=== PATIENT | female | born 1945 | race Caucasian/White ===

== ENCOUNTER → 2019-09-20 | Outpatient (CLI) | payer MEDICARE ==
--- NOTE | 2019-09-21 09:57 | USB ---
Reason for exam: clinical finding. History: Implants in both breasts. Physical Findings: Nurse did not find any significant physical abnormalities on exam. US Breast BILAT Right complete breast ultrasound includes all four quadrants, the retroareolar region and axilla. Finding demonstrates no cystic or solid lesion seen. Left complete breast ultrasound includes all four quadrants, the retroareolar region and axilla. Finding demonstrates no cystic or solid lesion seen. Underlying implants demonstrated with calcified capsules. These results were verbally communicated with the patient and result sheet given to the patient on 09/20/19. ASSESSMENT: Incomplete: need additional imaging evaluation, BI-RAD 0 RECOMMENDATION: Breast MRI of both breasts. If concern for implant rupture. Routine screening mammogram of both breasts. Patient is due not for annual exam.
== END | disposition home or self-care (01) ==
LOC: RADUSWWP 13:48
PROVIDERS: ATTEND Family Medicine
DX: T85.49XA Other mechanical complication of breast prosthesis and implant, initial encounter (principal)

== ENCOUNTER → 2019-09-29 | Outpatient (CLI) | payer MEDICARE ==
[2019-09-29 09:56] VITALS: BP 121/74; PULSE 81; RESP 16; TEMP 97.9
--- NOTE | 2019-09-29 10:38 | P.GSHP ---
History of Present Illness H&P Date: 09/29/19 Chief Complaint: ? implant rupture Jihan is a 74 year old white female seen in consultation for DR. Reid who had her last mammogram in 2018. She had bilateral breast implants placed in 1989. She does not know what type of implants they are. On her last mammogram in 2018 there was question of irregularity of the superior posterior lateral aspect of the left implant, which suggested extracapsular implant rupture which had increased since 2014. No suspicious masses or architectural distortion was otherwise noted. This was benign BIRADS Category 2 with left breast findings suggestive for extracapsular implant rupture. The patient had an ultrasound of both breast performed [place] [id number]. This revealed calcified capsules on the implants and an MRI of both breast was recommended. The patient herself has not noted any lumps masses or nodules in her breast. She has not noted any change in the size of the implants. She does not have any concerns of any pain related to the implants. She has no recent history of any trauma or infection of the breast. Caffeine: 1 coffee/day Nicotine: Negative Theophylline: Patient known Hormones: Negative Family History: sister: throat cancer smoker Hormonal History: menarche: 15 , first born at 27, breast fed: yes menopause: 49 BCP: 5 years hormones: none Surgical history: 1. Tubal ligation 2. Bilateral breast implants 3. C-sections 4. Left femur lroi 5. Eyelid surgery 6. Bilateral cataract surgery 7. Right knee arthroscopic surgery Medical history: none Social History: smoke: none/ stopped 37 years age 1PPD/27 years alcohol: glass of wine daily drugs:none - Constitutional Constitutional: Denies chills, Denies fever - EENT Eyes: denies blurred vision, denies pain Ears: bilateral: tinnitus, deny: decreased hearing Ears, nose, mouth and throat: Denies headache, Denies sore throat - Breasts Breasts: bilateral: as per HPI - Cardiovascular Cardiovascular: Denies chest pain, Denies shortness of breath - Respiratory Comment: bronchitis/ former smoker Respiratory: Denies cough, Denies 7 - Gastrointestinal Gastrointestinal: Denies abdominal pain, Denies diarrhea, Denies nausea, Denies vomiting - Genitourinary (Female) Genitourinary: Denies dysuria, Denies hematuria - Menstruation Menstruation: Reports postmenopausal - Musculoskeletal Comment: low back pain occasional Musculoskeletal: Denies myalgias - Integumentary Integumentary: Denies pruritus, Denies rash - Neurological Neurological: Denies numbness, Denies weakness - Psychiatric Psychiatric: Denies anxiety, Denies depression - Endocrine Endocrine: Denies fatigue, Denies weight change - Hematologic/Lymphatic Comment: none Past Medical History Past Medical History: COPD, GERD/Reflux Additional Past Medical History / Comment(s): HEART MURMUR; CHRONIC BRONCHITIS; LOWER BACK PAIN; History of Any Multi-Drug Resistant Organisms: None Reported Past Surgical History: Breast Surgery, Section, Orthopedic Surgery, Tubal Ligation Additional Past Surgical History / Comment(s): LEFT FEMUR FX WITH HARDWARE 1979; right knee surgery; section x2 10/1972 & 06/1985; tubal ligation 1981; breast implants approx~1989; Past Anesthesia/Blood Transfusion Reactions: No Reported Reaction Past Psychological History: No Psychological Hx Reported Smoking Status: Former smoker Past Alcohol Use History: Occasional Additional Past Alcohol Use History / Comment(s): SMOKED FOR APPROX 27 YEARS, 1PPD. QUIT SMOKING 27 YRS AGO. Past Drug Use History: None Reported - Past Family History Sister(s) Family Medical History: Cancer Additional Family Medical History / Comment(s): THROAT CA. Mother Additional Family Medical History / Comment(s): Arteriosclerosis Medications and Allergies Home Medications Medication Instructions Recorded Confirmed Type Multivitamins, Thera [Multivitamin] 1 tab PO QAM 07/31/15 09/29/19 History Naproxen Sodium [Aleve] 440 mg PO BID PRN 07/31/15 09/29/19 History Rosuvastatin Calcium [Crestor] 10 mg PO HS 07/31/15 09/29/19 History Tiotropium [place] [Spiriva] 1 puff IH QAM 07/31/15 09/29/19 History Vitamin B Complex 1 each PO QAM 07/31/15 09/29/19 History diphenhydrAMINE [Benadryl] 25 mg PO HS 07/31/15 09/29/19 History Acetaminophen-Codeine 300-30mg 1 tab PO Q6H PRN #40 tablet 08/01/15 09/29/19 Rx [Tylenol #3] Ibuprofen 200 mg PO Q8H PRN 09/29/19 09/29/19 History Allergies Allergy/AdvReac Type Severity Reaction Status Date / Time No Known Allergies Allergy Verified 09/29/19 09:45 Surgical - Exam Vital Signs Temp Pulse Resp BP Pulse Ox 97.9 F 81 16 121/74 93 L 09/29/19 09:48 09/29/19 09:48 09/29/19 09:48 09/29/19 09:48 09/29/19 09:48 BMI 24.8 - General well developed, well nourished, no distress - Eyes normal ocular movement - ENT no hearing loss, no congestion - Neck no masses, trachea midline, no lymphadectomy, no venous distension - Respiratory normal respiratory effort, clear to auscultation - Cardiovascular Rhythm: regular Heart Sounds: normal: S1, S2 - Abdomen Abdomen: soft, non tender, no guarding, no rigid, no rebound - Integumentary normal turgor - Neurologic no disoriented, no combative - Musculoskeletal normal gait, normal posture - Psychiatric oriented to time, oriented to person, oriented to place, speech is normal, memory intact breast exam: BRA 36C inspection: bilateral grade 3 ptosis implants prominate at 12 oclock postions, left breast smaller than right breast palpation: Breasts: Right breast: Multi-positional exam Implant in place capsular scar believed to be present, fibrocystic changes, no dominant masses or nodules of concern Right axilla: No adenopathy of concern Left breast: Implant in place/capsular scar believed to be present, fibrocystic changes no dominant masses or nodules of concern on multiposition or exam. Left axilla: No adenopathy of concern Results Mammogram report 2018 and recent ultrasound report 2019 reviewed Assessment and Plan Assessment: Impression: 1. Patient with questionable left breast implant rupture 2. Probable bilateral contractures/scarring around implants 3. Fibrocystic breast changes 4. Patient's last bilateral mammogram 2018 Plan: 1. Bilateral breast MRI rule out implant rupture 2. Patient to follow up after breast MRI 3. We discussed implant removal and possible reconstruction possible follow-up with plastic surgery Cc: Dr. Reid encounter 45 minutes > 50% of time in planning and counselling
== END | disposition home or self-care (01) ==
LOC: WWCWWP 09:36
PROVIDERS: ATTEND Surgery
DX: Z53.9 Procedure and treatment not carried out, unspecified reason (principal)

== ENCOUNTER → 2019-11-01 | Outpatient (CLI) | payer MEDICARE ==
--- NOTE | 2019-11-03 16:26 | BMR ---
EXAMINATION TYPE: MR breast BILAT wo/w con DATE OF EXAM: 11/01/2019 COMPARISON: Ultrasound breast 09/20/2019, mammogram 09/14/2017 HISTORY: Abnormal Breast exam, Possible ruptured implant Left Side TECHNIQUE: A series of fat and water weighted images in the long and short axis views of both breasts are obtained in conjunction with dynamic contrast MRI with subtraction technique. The patient was i njected with 6.5 mL intravenous Gadavist gadolinium contrast. Three-dimensional and additional post processing imaging is created on independent workstation and reviewed during official interpretation of this study. REFERENCE: Reference FINDINGS: Linguine sign is noted within the left breast implant. There is abnormal signal at the supe rior margin of the left breast implant consistent with extracapsular rupture and correlating with pat ient's mammogram finding. Linguine sign also present within the right breast implant although no extracapsular rupture is ident ified. There is no abnormal enhancement. Silicone implants. IMPRESSION: Intracapsular and extracapsular rupture identified in the left breast implant, intracapsular rupture is suspected within the right breast implant.
== END | disposition home or self-care (01) ==
LOC: RADMRIMAIN 10:24
PROVIDERS: ATTEND Surgery
DX: N64.89 Other specified disorders of breast (principal); Z98.82 Breast implant status
CPT/HCPCS: C8937; C8908; A9585; 77049

== ENCOUNTER 2019-12-20 10:41 | Day surgery (SDC) | payer MEDICARE ==
[2019-12-15 12:56] VITALS: BMI 25.3
[~2019-12-20 10:41] MED LIST: FAMOTIDINE 20 MG/2 ML VIAL IV PRN; HYDROmorphone 0.5 MG/0.5 ML SYRINGE IVP PRN; LACTATED RINGERS 1,000 ML IV SCH; ONDANSETRON 4 MG/2 ML VIAL IVP PRN
[2019-12-20] MEDS ORDERED: ONDANSETRON 4 MG/2 ML VIAL ONE (11:50)
[2019-12-20] MEDS ORDERED: SUCCINYLCHOLINE CHLORIDE 100 MG/5 ML SYR IV ONE (13:21)
[2019-12-20] MEDS ORDERED: ePHEDrine SULFATE/0.9% NACL/PF 50 MG/5 ML SYRINGE IV ONE (13:21)
[2019-12-20] MEDS ORDERED: MIDAZOLAM 2 MG/2 ML VIAL ONE (13:21)
[2019-12-20] MEDS ORDERED: LIDOCAINE 1% INJ 10MG/ML (20 ML MDV) ONE (13:21)
[2019-12-20] MEDS ORDERED: PROPOFOL 10 MG/ML 20 ML VIAL IV ONE (13:21)
[2019-12-20] MEDS ORDERED: fentaNYL (PF) 50 MCG/ML 2 ML AMP ONE (13:21)
[2019-12-20] MEDS ORDERED: SODIUM CHLORIDE 0.9% 100 ML with ceFAZolin 2,000 MG IV ONE ×2 (13:40)
[2019-12-20] MEDS ORDERED: LACTATED RINGERS 1,000 ML IV ONE (15:11)
[2019-12-20 15:47] VITALS: TEMP 96.8
[2019-12-20 15:54] VITALS: RESP 16
[2019-12-20] MEDS ORDERED: Acetaminophen-Codeine 300-30mg TAB ONE (16:37)
[2019-12-20] MEDS ORDERED: Acetaminophen-Codeine 300-30mg TAB PO ONE (16:42)
[2019-12-20 17:00] VITALS: BP 110/63; PULSE 86
--- NOTE | 2019-12-21 00:02 | OP ---
OPERATIVE REPORT DATE OF SURGERY: December 20, 2019. SURGEON: Panchito Buck MD PREOPERATIVE DIAGNOSES: 1. Ruptured bilateral silicone breast implants. 2. Bilateral capsular contracture. POSTOPERATIVE DIAGNOSES: 1. Ruptured bilateral silicone breast implants. 2. Bilateral capsular contracture. OPERATIVE PROCEDURE: 1. Remove ruptured right breast silicone implant. 2. Complete right capsulectomy. 3. Remove ruptured left breast silicone implant. 4. Complete left breast capsulectomy. OPERATIVE INDICATIONS: The patient is a 74-year-old female who had silicone breast implants placed for augmentation over 30 years ago. She had noticed changes over the year with hardness, distortion, and now pain. She was referred as mammogram demonstrated ruptured breast implants. The patient was seen, evaluated in consultation, counseled to undergo today's surgery. She was given options of multiple procedures, but has elected to take a staged technique with removal of the ruptured implants and complete capsulectomy and then decide if she wants further reconstructive surgery at that point. She understands she will need drains and there are potential risks and complications associated with the surgery including but not limited to hematoma, seroma, wound healing problems, postoperative infection, among others. She has requested I perform the surgery. OPERATIVE PROCEDURE SUMMARY: The patient was seen presurgical area, markings made, procedure reviewed. All questions answered. She was transported to the operating room where she was placed in supine position. Following induction general endotracheal anesthesia, the patient was prepped and draped in usual fashion. Surgery was initiated on the right side and site for incision was drawn along the lateral aspect of the patient's breast in transverse orientation 2 cm from the nipple areolar complex center point. The incision measured 9 cm in length was made with 10 blade scalpel followed by cauterization to divide subcutaneous tissue. Cauterization was then used to divide the breast parenchyma until identifying the breast capsular structure which was calcified, distorted, irregular and firmly adherent to all structures. Dissection with cautery was performed until the implant was free of all attachments. Then it was passed through the incision with minimal pressure. There was no silicone spill. Hemostasis maintained with cautery. Site was packed open with multiple laparotomy sponges. The attention was turned towards the left side. Incision was drawn in a symmetrical fashion to the right using 10 blade scalpel. Full-thickness skin incision was completed followed by cauterization to maintain hemostasis, divide subcutaneous tissue then divide breast parenchyma until identifying the capsular structure. Like on the right side, the capsular structure was calcified, irregular and firmly and densely adherent to all structures. Careful dissection was performed with cauterization until the capsule was surrounded. The implant was no longer secured to the breast parenchyma or chest wall. The implant was then passed through the incision with gentle pressure and minimal distortion. There was no rupture of silicone into the patient. Both implants and capsules were sent to pathology for evaluation. Hemostasis was maintained on the left side with cauterization. Both breasts were now irrigated using pulsatile irrigation unit and 3 L of fluid. Excellent hemostasis was present. Nineteen round Uzair channel drains were opened on the field, inserted into each surgical site and brought out separate stab incisions in the right or left anterior lateral chest wall. Drains sutured in place with 2-0 Prolene. They were kept at full length and coiled. The surgical incisions were now closed approximating Lashon's layer using inverted interrupted 4-0 Monocryl, then the deep dermis using inverted interrupted 4-0 Monocryl completing superficial dermal and epidermal closure with running 5-0 Prolene. The drains were patent at the end of the procedure and connected to close bulb suction. Surgical bridges were cleansed with saline, dried, postoperative bandages placed using 1 inch sterile paper tape over suture repairs followed by Kerlix squares secured with 3M Medipore tape and in position size 2 mammary support. The patient was awakened from her anesthetic, extubated, and transferred to recovery room in good condition with stable vital signs. Estimated blood loss was 50 mL. There were no complications. MMODL / IJN: [id number] /
== END 2019-12-20 17:33 | disposition home or self-care (01) ==
LOC: OR 10:41
PROVIDERS: ATTEND Plastic Surgery
DX: T85.898A Other specified complication of other internal prosthetic devices, implants and grafts, initial encounter (principal); T85.44XA Capsular contracture of breast implant, initial encounter; R01.1 Cardiac murmur, unspecified; Z98.49 Cataract extraction status, unspecified eye; J44.9 Chronic obstructive pulmonary disease, unspecified; E78.5 Hyperlipidemia, unspecified; Z98.890 Other specified postprocedural states; E55.9 Vitamin D deficiency, unspecified; K21.9 Gastro-esophageal reflux disease without esophagitis; Z79.1 Long term (current) use of non-steroidal anti-inflammatories (NSAID); Z79.899 Other long term (current) drug therapy
CPT/HCPCS: 19371; J2250; J2405; J0690; J2001; J3010; J0330; J2704; J1170; 88305; 88311

== ENCOUNTER → 2021-05-16 | Outpatient (CLI) | payer MEDICARE ==
--- NOTE | 2021-05-16 14:48 | MR ---
EXAMINATION TYPE: MR knee LT wo con DATE OF EXAM: 05/16/2021 COMPARISON: None HISTORY: Pain in left knee TECHNIQUE: Multiplanar, multisequence imaging of the left knee is performed without IV contrast. FINDINGS: Distal femoral intramedullary lori is noted and results in artifact. MEDIAL MENISCUS: Anterior and posterior horns are intact without tear. LATERAL MENISCUS: Anterior and posterior horns are intact without tear. CRUCIATE LIGAMENTS: The anterior and posterior cruciate ligaments are intact and unremarkable. COLLATERAL LIGAMENTS: The medial collateral ligament and lateral collateral ligament complex are inta ct and unremarkable. EXTENSOR MECHANISM: Visualized quadriceps and patellar tendons are intact. EFFUSION: No significant suprapatellar joint effusion. POPLITEAL CYST: No popliteal/patel cyst. TRICOMPARTMENT SPACES: Moderate narrowing medial tibiofemoral joint space with mild narrowing of the patellofemoral joint space. CARTILAGE: Thinning cartilage medial compartment with subchondral cysts seen. BONE MARROW SIGNAL: No focal abnormal marrow signal is appreciated. OTHER: No additional significant abnormality is appreciated. IMPRESSION: 1. No evidence for internal derangement. 2. Changes of osteoarthritis.
== END | disposition home or self-care (01) ==
LOC: RADMRIMAIN 13:34
PROVIDERS: ATTEND Orthopaedic Surgery
DX: M25.562 Pain in left knee (principal)

== ENCOUNTER → 2021-06-16 | Outpatient (CLI) | payer MEDICARE ==
[2021-06-16 18:35] LABS: Basophils # (A) 0.04 X 10*3/uL (0.00-0.10); Basophils % (A) 0.6 %; Eosinophils # (A) 0.17 X 10*3/uL (0.04-0.35); Eosinophils % (A) 2.7 %; HCT 40.7 % (37.2-46.3); Immature Grans, Automated 0.2 %; Lymphocytes # (A) 2.27 X 10*3/uL (0.90-5.00); MCH 31.5 pg (27.0-32.0); MCHC 31.9 g/dL (32.0-37.0); MCV 98.5 fL (80.0-97.0); Monocytes # (A) 0.44 X 10*3/uL (0.20-1.00); NRBC Per 100 WBC 0 /100 WBCS (0.0-0.0); Neutrophils # (A) 3.38 X 10*3/uL (1.80-7.70); Neutrophils % (A) 53.5 %; Platelet Count 242 X 10*3/uL (140-440); RBC 4.13 X 10*6/uL (4.10-5.20); RDW 12.3 % (11.5-14.5); WBC 6.31 X 10*3/uL (4.50-10.00)
[2021-06-16 18:49] LABS: Anion Gap 15.1 mmol/L (10.00-18.00); Carbon Dioxide 27.7 mmol/L (20.0-27.5); Potassium 3.7 mmol/L (3.5-5.5)
== END | disposition home or self-care (01) ==
LOC: LABPAT 13:25
PROVIDERS: ATTEND Orthopaedic Surgery
DX: Z01.812 Encounter for preprocedural laboratory examination (principal); M23.92 Unspecified internal derangement of left knee
CPT/HCPCS: 80051; 85025; 93005

== ENCOUNTER 2021-07-03 08:56 | Day surgery (SDC) | payer MEDICARE ==
[2021-06-30 11:09] VITALS: BMI 26.2
--- NOTE | 2021-07-02 21:04 | HP ---
HISTORY AND PHYSICAL REASON FOR ADMISSION: Surgery scheduled 07/03/2021 HISTORY OF PRESENT ILLNESS: Jihan Mccollum is a 75-year-old patient seen with progressive left knee pain. We discussed options for treatment. She elected to proceed with left knee arthroscopy. Consent obtained. PAST MEDICAL HISTORY: Hyperlipidemia and COPD. PAST SURGICAL HISTORY: Breast surgery, cataract surgery, section. MEDICATIONS: Crestor, Spiriva, ibuprofen. ALLERGIES: None. SOCIAL HISTORY: She denies current tobacco use. PHYSICAL EVALUATION OF THE LEFT KNEE: Range of motion is zero to 130. Mild effusion. Tenderness medial joint line. Positive medial Giacomo's. Ligaments stable. Hip rotation without pain. Distal neurovascular exam is intact. RADIOGRAPHS: Radiographs of the left knee revealed osteoarthritic changes. MRI left knee revealed moderate osteoarthritic changes. IMPRESSION: 1. Internal derangement of left knee with osteochondral tear. 2. Hyperlipidemia. 3. Chronic obstructive pulmonary disease. PLAN: Left knee arthroscopy with chondroplasty and debridement. Surgery scheduled for 07/03/2021. MMODL / IJN: [id number] /
[~2021-07-03 08:56] MED LIST changes: +DEXAMETHASONE SOD PHOSPHATE 4 MG/ML 1 ML VIAL IV ONE; -FAMOTIDINE 20 MG/2 ML VIAL IV PRN; +ONDANSETRON 4 MG/2 ML VIAL IVP ONE; -ONDANSETRON 4 MG/2 ML VIAL IVP PRN
[2021-07-03] MEDS ORDERED: fentaNYL (PF) 50 MCG/ML 2 ML AMP ONE (11:37)
[2021-07-03] MEDS ORDERED: PHENYLEPHRINE-0.9% NACL SYG 1,000 MCG/10 ML SYRINGE ONE (11:37)
[2021-07-03] MEDS ORDERED: LIDOCAINE 1% INJ 10MG/ML (20 ML MDV) ONE (11:37)
[2021-07-03] MEDS ORDERED: PROPOFOL 10 MG/ML 20 ML VIAL IV ONE (11:37)
[2021-07-03] MEDS ORDERED: BUPIVACAIN-EPI 0.25%-1:200,000 30 ML VIAL INTRAARTIC ONE (11:41)
--- NOTE | 2021-07-03 12:18 | P.OP ---
Date of Procedure: 07/03/21 Preoperative Diagnosis: Internal derangement left knee Postoperative Diagnosis: 1. Complex tear posterior horn medial meniscus left knee 2. 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 Reactive synovitis medial, lateral and suprapatellar compartments left knee Procedure(s) Performed: 1. Arthroscopic partial medial meniscectomy left knee 2. Arthroscopic microfracture medial tibial plateau left knee 3. Arthroscopic partial synovectomy medial, lateral and suprapatellar compartments left knee Anesthesia: PHILLA, local Surgeon: Alverto Lafleur Estimated Blood Loss (ml): 7 Pathology: none sent Condition: stable Disposition: PACU Indications for Procedure: 75-year-old patient seen with progressive left knee pain. After having treatment options discussed, she elected to proceed with arthroscopy. Operative Findings: see description of procedure Description of Procedure: Patient was taken to the operative suite. Patient underwent a general anesthetic by the department of anesthesia. Patient was given preoperative antibiotics. The left lower extremity was placed in a well-padded arthroscopic leg bryant. The left leg was prepped and draped in the normal sterile orthopedic fashion. A lateral parapatellar and suprapatellar incision was made. Trochars were inserted. Arthroscopy was initiated. Suprapatellar pouch revealed diffuse thick reactive synovitis. The patellofemoral joint appeared to articulate congruently. There was grade 1/2 chondromalacia of the patella with no significant osteochondral tears present. The scope was guided into the medial gutter. No loose bodies or plica were identified. The scope was then guided into the medial compartment. A medial parapatellar incision was made. Trocar inserted followed by probe. There was a complex tear involving the posterior horn of the medial meniscus. There were grade 2/3 chondromalacia changes of the medial femoral condyle with some diffuse osteochondral tearing. There was an area of grade 4 chondromalacia of the medial tibial plateau along the medial weightbearing surface. There was thick reactive synovitis anteriorly. I performed a partial medial meniscectomy getting down to stable meniscal tissue. I performed a chondroplasty of the medial femoral condyle. I performed a partial synovectomy. The residual meniscus was stable. There was good decompression of synovitis. I again noted area of exposed bone medial tibial plateau. I introduced a microfracture awl into the medial compartment. I performed a microfracture of medial tibial plateau penetrating the bone with resultant bleeding at the microfracture site. The residual osteochondral surface was probed and was found to be stable. Scope and probe were then guided into the intercondylar notch. Cruciates were identified, probed and found to be stable. The scope and probe were then guided into lateral compartment. Lateral meniscus was probed and was found to be stable. There were mild grade 1 chondromalacia changes lateral compartment. There was thick reactive synovitis anteriorly. I introduced a motorized shaver and performed a partial synovectomy. Shaver was removed. There was good decompression of synovitis. The scope was in guided back into the suprapatellar compartment. I introduced a motorized shaver into the suprapatellar compartment. I debrided some piecemeal fragments of meniscus that I encountered. I performed a partial synovectomy. The shaver was removed. There was good decompression of synovitis. I now took one more look around the entire knee. There was no residual debris present. Instruments were now removed from the joint. The joint was infiltrated with .25% Marcaine. Steri-Strips were applied to the portal sites. Sterile dressings were applied. The patient was placed into a DIANA hose. No tourniquet was utilized. The patient was awakened, transferred to a bed and taken to recovery stable satisfactory condition.
[2021-07-03 12:20] VITALS: RESP 16; TEMP 97.5
[2021-07-03 13:57] VITALS: BP 121/73; PULSE 85
== END 2021-07-03 14:11 | disposition home or self-care (01) ==
LOC: OR 08:56
PROVIDERS: ATTEND Orthopaedic Surgery
DX: M23.204 Derangement of unspecified medial meniscus due to old tear or injury, left knee (principal); M94.262 Chondromalacia, left knee; M65.862 Other synovitis and tenosynovitis, left lower leg; E78.5 Hyperlipidemia, unspecified; K21.9 Gastro-esophageal reflux disease without esophagitis; J44.9 Chronic obstructive pulmonary disease, unspecified; Z98.891 History of uterine scar from previous surgery; Z98.49 Cataract extraction status, unspecified eye; Z98.890 Other specified postprocedural states; Z79.1 Long term (current) use of non-steroidal anti-inflammatories (NSAID); Z79.899 Other long term (current) drug therapy
CPT/HCPCS: 29881; 29879; 29876; J1100; J2405; J0690; J2001; J3010; J2370; J2704; J1170